=== PATIENT | male | born 1985 | race American Indian/Alaskan Native ===

== ENCOUNTER 2016-08-23 08:42 | Emergency (ER) | payer OTHER ==
[2016-08-23 09:12] LABS: Basophils % (Auto) 0.4 % (0.0-1.8); Eosinophils % (Auto) 0.4 % (0.0-4.3); Hematocrit 37.9 % (35.5-45.6); Mean Corpuscular HGB Conc 34 % (32-34); Mean Corpuscular Hemoglobin 33 pg (28-32); Mean Corpuscular Volume 95 fl (84-94); Platelet Count 412 K/mm3 (140-440); Red Blood Count 3.98 M/mm3 (3.65-5.03); Red Cell Distribution Width 13.8 % (13.2-15.2); White Blood Count 11.6 K/mm3 (4.5-11.0)
[2016-08-23 09:23] LABS: Anion Gap 21 mmol/L; Blood Urea Nitrogen 30 mg/dL (9-20); Calcium 9.4 mg/dL (8.4-10.2); Carbon Dioxide 22 mmol/L (22-30); Chloride 94.1 mmol/L (98-107); Glucose 150 mg/dL (75-100); Potassium 4.1 mmol/L (3.6-5.0); Sodium 133 mmol/L (137-145)
[2016-08-23] MEDS ORDERED: NACL 0.9% 1000 ML 1,000 ML IV ONE ×2 (16:17→17:58)
--- NOTE | 2016-08-23 16:26 | Emergency Department Report ---
ED GI Bleed HPI - General Chief complaint: Abdominal Pain Stated complaint: BLACK STOOL/ABD PAIN/VOMITING Time Seen by Provider: 08/23/16 16:16 Source: patient Mode of arrival: Ambulatory Limitations: No Limitations - History of Present Illness Initial comments: Patient is a 31-year-old male with no past medical history presenting to the ED with black stools. Patient reports he's been having dark stools for the last few days. Patient denies any Pepto-Bismol use, but does report heavy NSAID use on empty stomach for the last few weeks due to dental pain. No history of GI bleed or blood transfusion in the past. Otherwise no fevers, headache, chills, dizziness, nausea, vomiting, diarrhea, shortness of breath, chest pain, abdominal pain, diarrhea, travel, or sick contacts. - Related Data Allergies Allergy/AdvReac Type Severity Reaction Status Date / Time No Known Allergies Allergy Unverified 08/23/16 08:45 ED Review of Systems ROS: Stated complaint: BLACK STOOL/ABD PAIN/VOMITING Other details as noted in HPI Comment: All other systems reviewed and negative ED Past Medical Hx - Past Medical History Previous Medical History?: No - Surgical History Past Surgical History?: No - Social History Smoking Status: Never Smoker Substance Use Type: Marijuana ED Physical Exam - General Limitations: No Limitations General appearance: alert, in no apparent distress - Head Head exam: Present: atraumatic, normocephalic - Eye Eye exam: Present: normal appearance - ENT ENT exam: Present: mucous membranes moist - Neck Neck exam: Present: normal inspection - Respiratory Respiratory exam: Present: normal lung sounds bilaterally. Absent: respiratory distress - Cardiovascular Cardiovascular Exam: Present: normal rhythm, tachycardia, normal heart sounds. Absent: systolic murmur, diastolic murmur, rubs, gallop - GI/Abdominal GI/Abdominal exam: Present: soft, normal bowel sounds - Rectal Rectal exam: Present: normal inspection, normal rectal tone, heme (+) stool, black stool, normal prostate. Absent: hemorrhoids, mass, tenderness, prostate tenderness - exam: Present: normal inspection. Absent: testicular tenderness, urethral discharge, scrotal swelling External exam: Present: normal external exam. Absent: erythema, swelling - Extremities Exam Extremities exam: Present: normal inspection - Back Exam Back exam: Present: normal inspection - Neurological Exam Neurological exam: Present: alert, oriented X3 - Psychiatric Psychiatric exam: Present: normal affect, normal mood - Skin Skin exam: Present: warm, dry, intact, normal color. Absent: rash ED Course Vital Signs 08/23/16 08/23/16 08/23/16 08:45 16:40 17:05 Temperature 97.6 F Pulse Rate 120 H 103 H Respiratory 18 16 16 Rate Blood Pressure 103/67 Blood Pressure 112/78 [Left] O2 Sat by Pulse 100 99 99 Oximetry 08/23/16 18:58 Temperature Pulse Rate 77 Respiratory Rate Blood Pressure Blood Pressure [Left] O2 Sat by Pulse Oximetry ED Medical Decision Making - Lab Data Result diagrams: 08/23/16 08:55 08/23/16 08:55 - EKG Data -: EKG Interpreted by Me - EKG Data 08/23/16 16:46 EKG 1629 sinus tachycardia at 104 bpm, QTC 410 ms, normal axis, no LVH, no ST changes, no STEMI - Medical Decision Making Results discussed with patient. HR improved from 120's to 77. Ordered 2nd liter. Discussed with patient cessation of NSAID use. Pt to follow up with PMD Critical care attestation.: If time is entered above; I have spent that time in minutes in the direct care of this critically ill patient, excluding procedure time. ED Disposition Clinical Impression: Bloody stool, NSAID long-term use, Dehydration Disposition: DC-01 TO HOME OR SELFCARE Is pt being admited?: No Condition: Stable Instructions: Gastrointestinal Bleeding (ED), Dehydration (ED) Additional Instructions: PLEASE STOP TAKING ALL NSAIDS: IBUPROFEN, MOTRIN, ADVIL, NAPROSYN, ALEVE, AND ETC... Referrals: PRIMARY CARE, [Primary Care Provider] - 3-5 Days
[2016-08-23 17:06] VITALS: BP 112/78
[2016-08-23 17:39] LABS: Alanine Aminotransferase 17 units/L (7-56); Albumin 4.3 g/dL (3.9-5); Albumin/Globulin Ratio 1.2 %; Alkaline Phosphatase 78 units/L (35-129); Total Protein 7.9 g/dL (6.3-8.2)
[2016-08-23 17:48] LABS: Bilirubin,Direct < 0.2 mg/dL (0-0.2)
[2016-08-23 18:02] LABS: INR 0.92 (0.87-1.13)
[2016-08-23 18:03] LABS: Partial Thromboplastin Time 32.8 Sec. (24.2-36.6)
== END 2016-08-23 19:40 | disposition home or self-care (01) ==
LOC: ED 08:42
DX: K92.1 Melena (principal); E86.0 Dehydration
CPT/HCPCS: 36415; 80048; 80074; 85025; 85610; 85730; 86850; 86900; 86901; 93005; 93010; 96360; 96361; 99284; J7030